=== PATIENT | female | born 1960 | race Caucasian/White ===

== ENCOUNTER 2023-12-05 19:30 | Emergency (ER) | payer MEDICARE, MEDICAID, SELFPAY ==
--- NOTE | 2023-12-05 | ECG_ITS ---
Test Reason : SYNCOPE Blood Pressure : / mmHG Vent. Rate : 086 BPM Atrial Rate : 086 BPM P-R Int : 154 ms QRS Dur : 086 ms QT Int : 394 ms P-R-T Axes : 050 034 026 degrees QTc Int : 471 ms Normal sinus rhythm Possible Left atrial enlargement Borderline ECG No previous ECGs available Referred By: Generic ED Physician Electronically Signed By:Vernon Bowser
[2023-12-05 19:37] VITALS: BP 109/61; BP 125/76; PULSE 91; PULSE 94; RESP 16; TEMP 36.7; O2SAT 95; O2SAT 98; BMI 40.3
[2023-12-05 19:54] LABS: MANUAL DIFF FLAG NO
[2023-12-05 19:54] LABS: Glucose, Whole Blood 84 mg/dL (60-115)
[2023-12-05 19:55] LABS: Basophils Absolute Auto 0.1 X10*3/uL (0.0-0.2); Basophils Percent Auto 0.8 % (0-2); Eosinophils Absolute Auto 0.2 X10*3/uL (0.0-0.4); Eosinophils Percent Auto 2.6 % (0-4); Hemoglobin 14.3 g/dl (12.0-16.0); Imm Gran Abs Auto 0.02 X10*3/uL (0.00-0.03); Imm Gran Pct Auto 0.3 % (0.0-0.4); Lymphocytes Absolute Auto 1.6 X10*3/uL (1.2-4.9); Lymphocytes Percent Auto 20.5 % (20-40); Mean Corpuscular HGB Conc 32.5 g/dl (31.0-35.0); Mean Corpuscular Hemoglobin 29.4 pg (27.0-33.0); Mean Corpuscular Volume 90.3 fL (80.0-98.0); Mean Platelet Volume 9.2 fL (9.4-12.3); Monocytes Absolute Auto 0.7 X10*3/uL (0.1-1.2); Monocytes Percent Auto 9.5 % (2-11); Neutrophils Percent Auto 66.3 % (45-73); Platelet Count 237 X10*3/uL (160-400); Red Blood Count 4.87 X10*6/uL (4.20-5.50); Red Cell Distribution Width 11.9 % (11.0-16.0); White Blood Count 7.6 X10*3/uL (4.8-10.8)
[2023-12-05 20:17] LABS: Alanine Aminotransferase 19 U/L (0-31); Albumin Level 4.1 g/dL (3.5-5.0); Alkaline Phosphatase 91 U/L (39-117); Anion Gap 12 (12-20); Aspartate Amino Transferase 26 U/L (5-31); Bilirubin Total 0.6 mg/dL (0.0-1.0); Blood Urea Nitrogen 14 mg/dL (9-16); Calcium 9.7 mg/dL (8.4-10.2); Carbon Dioxide 25 mmol/L (22-29); Chloride 108 mmol/L (96-108); Creatinine Clr Calc Pharmacy 46.7; Estimated Glomerular Filt Rate 34; Glucose Random 95 mg/dL (60-115); Potassium 3.7 mmol/L (3.3-5.1); Sodium 141 mmol/L (135-145); Total Protein 6.7 g/dL (6.5-8.0)
[2023-12-05 20:24] LABS: Troponin-I High Sensitivity 7.1 ng/L (<3.5-17.0)
[2023-12-05 20:40] LABS: Influenza A PCR NEGATIVE (Negative); Influenza B PCR NEGATIVE (Negative); Resp Syncy Virus RNA Qual PCR NEGATIVE (Negative); SARS COV2 PCR INHOUSE NEGATIVE (Negative)
--- NOTE | 2023-12-05 21:03 | ED_ITS ---
HPI - Syncope General Chief Complaint: Syncope Stated Complaint: SYNCOPAL EPISODE PER EMS Time Seen by Provider: 12/05/23 20:58 Source: patient, EMS and old records reviewed Mode of arrival: EMS Limitations: no limitations History of Present Illness ED Provider: VASU SANDOVAL narrative: 63 yo female with PMH of obesity s/p gastric bypass with hx of dumping syndrome who presents with c/o having a bad day today she didn't drink or eat enough and then when she did eat it was not enough protein so he had dumping. She was sitting down at umbrella mender had a prodrome and then syncopized x 2 min. [place] lightheaded new it was coming on. No trauma no seizures. Back to baseline and eager to go home and eat. She has has no CP/SOB, GIB symptoms. She states she has passed out before due to this. 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) Duration of episode: 3 -: minutes(s) Prodromal symptoms: lightheaded Witnessed: Yes - by Bystander Context: at rest Injuries sustained associated with event: none Current symptoms: back to baseline History: previous syncopal episode Treatments prior to arrival: none Related Data Allergies Allergy/AdvReac Type Severity Reaction Status Date / Time morphine [MORPHINE] Allergy Severe STOMACH Verified 12/05/23 19:41 PAIN FROM GASTRIC BYPASS SURG sumatriptan [From IMITREX] Allergy Severe ELEV BP Verified 12/05/23 19:41 ARMS LEGS TINGLE tizanidine [Tizanidine] Allergy Severe HAULLUCINAT Verified 12/05/23 19:41 IONS NSAIDS (Non-Steroidal Allergy Intermediate DUE TO Verified 12/05/23 19:41 Anti-Inflamma GASTRIC BYPASS SURGERY Review of Systems 2 Review of Systems: Constitutional : No Fever, No Chills, No Fatigue ENT/Mouth : No sore throat, No Rhinorrhea Eyes: No Eye Pain, No Swelling, No Redness Cardiovascular : No Chest Pain, No SOB, No Dyspnea on Exertion Respiratory : No Cough, No Sputum Gastrointestinal : No Nausea, No Vomiting, No Diarrhea, No abdominal Pain Genitourinary : No Dysuria, No Urinary Frequency, No Hematuria, Musculoskeletal : No joint pain, No Myalgias, No Joint Swelling Skin : No Skin Lesions, No rash Neuro : No Weakness, No Numbness, No Dizziness, no Headache All other systems reviewed and are negative [facility] Past Medical History Attestation statement: The following information was validated with the patient. Source: old records reviewed Medical History (Updated 12/05/23 @ 21:56 by Ana Santos DO) Hyperparathyroidism Dumping syndrome Surgical History H/O gastric bypass Social History Social History Patient Tobacco Use Status: Tobacco use Unknown Advance Directives: Yes Advance Directives Information Provided: No Advance Directives on File: No Physical Exam 2 Vital Signs: Vital Signs: Last Vital Signs Temp 98.1 F 12/05/23 19:37 Pulse 91 12/05/23 19:37 Resp 16 12/05/23 19:37 BP 109/61 12/05/23 19:37 Pulse Ox 95 12/05/23 19:37 O2 Del Method Room Air 12/05/23 19:37 BMI result Body Mass Index 40.3 Appearance: Alert. Oriented X3. No acute distress. Eyes: Pupils equal, round and reactive to light. ENT: Pharynx normal. Neck: Normal inspection. Neck supple. CVS: Normal heart rate and rhythm. Pulses normal. Respiratory: No respiratory distress. Breath sounds normal. Abdomen: Soft and nontender. Skin: Skin warm and dry. Normal skin color. Normal skin turgor. Extremities: No lower extremity edema. No calf ttp Neuro: Oriented X 3. No motor deficit. No sensory deficit. Medications Administered Generic Name Dose Route Start Last Admin Trade Name Freq PRN Reason Stop Dose Admin Lactated Ringer's 1,000 mls @ 999 mls/hr 12/05/23 21:04 12/05/23 21:07 Lr IV 12/05/23 22:04 999 mls/hr .Q1H1M ONE Administration Medical Decision Making Medical Decision Making MDM Narrative: 63 yo female with PMH of obesity s/p gastric bypass with hx of dumping syndrome who presents with c/o syncope while sitting had prodrome of dizziness knew she was going to pass out due to bad day with dumping and poor PO intake, no trauma, no seizures. She is back to baseline. Patient is eager to leave. Slight bump in Cr at this time will give bag of fluid and DC home - no CP/SOB to suggest VTE or ACS. Differential Diagnosis Differential Diagnoses: The differential diagnosis associated with the presentation includes syncope, dehydration, anemia Admission/Observation Consideration of admission/observation: Escalation of care including admission/observation considered work up negative states she has had this before no CP/SOB can be managed at home with fluids Lab Data MDM Lab Attestation statement: I reviewed the patient's lab results. 12/05/23 19:47 12/05/23 19:47 Labs: Lab Results 12/05/23 12/05/23 12/05/23 Range/Units 19:43 19:44 19:47 WBC 7.6 (4.8-10.8) X10*3/uL RBC 4.87 (4.20-5.50) X10*6/uL Hgb 14.3 (12.0-16.0) g/dl Hct 44.0 (37.0-47.0) % MCV 90.3 (80.0-98.0) fL MCH 29.4 (27.0-33.0) pg MCHC 32.5 (31.0-35.0) g/dl RDW 11.9 (11.0-16.0) % Plt Count 237 (160-400) X10*3/uL MPV 9.2 L (9.4-12.3) fL Immature Gran % (Auto) 0.3 (0.0-0.4) % Neut % (Auto) 66.3 (45-73) % Lymph % (Auto) 20.5 (20-40) % [place] % (Auto) 9.5 (2-11) % Eos % (Auto) 2.6 (0-4) % Baso % (Auto) 0.8 (0-2) % Lymph # (Auto) 1.6 (1.2-4.9) X10*3/uL [place] # (Auto) 0.7 (0.1-1.2) X10*3/uL Eos # (Auto) 0.2 (0.0-0.4) X10*3/uL Baso # (Auto) 0.1 (0.0-0.2) X10*3/uL Abs Immat Gran (auto) 0.02 (0.00-0.03) X10*3/uL Absolute Neuts (auto) 5.0 (2.0-8.3) x10*3/uL Absolute Nucleated RBC 0.000 (0.0-0.012) X10*3/uL Nucleated RBC % (auto) 0.0 (0.0-0.2) /100WBC Sodium 141 (135-145) mmol/L Potassium 3.7 (3.3-5.1) mmol/L Chloride 108 (96-108) mmol/L Carbon Dioxide 25 (22-29) mmol/L Anion Gap 12 (12-20) BUN 14 (9-16) mg/dL Creatinine 1.56 H (0.5-1.4) mg/dL Estim Creat Clear Calc 46.7 Estimated GFR 34 POC Glucose 84 (60-115) mg/dL Random Glucose 95 (60-115) mg/dL Calcium 9.7 (8.4-10.2) mg/dL Total Bilirubin 0.6 (0.0-1.0) mg/dL AST 26 (5-31) U/L ALT 19 (0-31) U/L Alkaline Phosphatase 91 (39-117) U/L Troponin I High Sens 7.1 (<3.5-17.0) ng/L Total Protein 6.7 (6.5-8.0) g/dL Albumin 4.1 (3.5-5.0) g/dL Influenza Type A (PCR) NEGATIVE (Negative) Influenza Type B (PCR) NEGATIVE (Negative) RSV RNA Qual (PCR) NEGATIVE (Negative) SARS-CoV-2 RNA (RT-PCR) NEGATIVE (Negative) Independent Interpretation I performed an independent interpretation of an: EKG Interpretation: Rate: 86 Rhythm: NSR [place]: normal Normal P waves. Normal SIGIFREDO. Normal QRS complex. ST T wave : no RADHA, inverted t waves V1 qTC:471 prior studies: no acute ischemia The study has been interpreted contemporaneously by me. . Independent Historian Clinical information obtained from an independent historian. History obtained from or confirmed by: Spouse Discharge Plan Discharge Clinical Impression: Acute dehydration, Syncope Patient Disposition: Home, Self-Care Instructions: Dehydration (ED), Syncope (ED) Additional Instructions: EKG reassuring slight bump in Creatinine to 1.5 - have your doctor recheck on Thursday return for any worsening symptoms or concerns such as chest pain, dizziness, falls stay hydrated and take care of yourself. Print Language: Sinhala
[2023-12-05] MEDS: Lactated Ringers 1,000 ML 999 ML IV (21:07)
[2023-12-05 21:45] VITALS: BP 119/75; PULSE 90; RESP 16; TEMP 36.7; O2SAT 96
== END 2023-12-05 23:55 | disposition home or self-care (01) ==
PROVIDERS: Emergency Provider Emergency Medicine; PCP Internal Medicine
DX: E86.0 Dehydration (principal); R55 Syncope and collapse; K91.1 Postgastric surgery syndromes; Z03.818 Encounter for observation for suspected exposure to other biological agents ruled out
CPT/HCPCS: 0241U; 36415; 80053; 82947; 84484; 85025; 93005; 99284; J7120

== ENCOUNTER → 2023-12-05 19:40 | Outpatient (BNV) | payer MEDICARE, MEDICAID, SELFPAY | PROVIDERS: Emergency Provider Emergency Medicine; PCP Internal Medicine; Visit Provider Internal Medicine Cardiovascular Disease | DX: R94.31 Abnormal electrocardiogram [ECG] [EKG] (principal) | CPT/HCPCS: 93010 ==